=== PATIENT | female | born 1950 | race Caucasian/White ===

== ENCOUNTER 2019-02-03 02:08 | Observation (INO) | payer MEDICARE, MEDICAID ==
[2019-02-03] VITALS (7 sets, daily range): BP systolic 131–189; BP diastolic 70–89; BMI 30.6
--- NOTE | ~2019-02-03 | HEMODYNAMI ---
PATIENT:ALBERT MADRID JR MEDICAL RECORD: [id number] : 50 LOCATION:[address] ADMISSION DATE: 02/03/19 Generatedon:02/03/201911:18 Patient name: ALBERT MADRID Patient #: [id number] SSN : : 1950 Date of study: 02/03/2019 Page: Of Hemodynamic Procedure Report Patient Data Patient Demographics Procedure consent was obtained First Name: ALBERT Gender: Female Last Name: JUILUS Suffix: [facility] Initial: Dominique : 1950 Patient #: [id number] Age: 68 year(s) Race: Unknown Additional ID: [id number] Contact details Address: [place] [place] [address] State: [place] City: [place] Zip code: [address] Admission Admission Data Admission Date: 02/03/2019 Admission Time: 2:56 Admit Source: Other Room #: D.2128 Procedure Procedure Types Cath Procedure Diagnostic Procedure LHC LHC w/Coronaries w/Grafts PCI Procedure AMI/SVG/TITLE CLOSER PTCA or Stent SVG-BMS/ELOISE Initial Procedure Description Procedure Date Procedure Date: 02/03/2019 Procedure Start Time: 10:44 Procedure End Time: 11:13 Procedure Staff Name Function Alok Go MD Performing Physician Darryl Stinson RT Monitor Tanisha Maza RN Nurse Jono Christianson RT Scrub Procedure Data Cath Procedure Fluoroscopy Diagnostic fluoroscopy Total fluoroscopy Time: 9.5 time: 9.5 min min Diagnostic fluoroscopy Total fluoroscopy dose: dose: 1198 mGy 1198 mGy Contrast Material Contrast Material Type Amount (ml) Isovue 370 143 Entry Location Entry Primary Successful Side Size Upsize Upsize Entry Closure Succes sful Closure Location (Fr) 1 (Fr) 2 (Fr) Remarks Device Remarks Femoral Right 5 Fr 6 Fr Exoseal artery Short Diagnostic catheters Device Type Used For End Catheter Placement MULTIPACK JL 4.0 5Fr Left Coronary catheter Angiography DIAGNOSTIC AR MOD 5Fr Right Coronary Catheter ([id number]) Angiography DIAGNOSTIC IM 5Fr SVG Angiography catheter ([id number]) MULTIPACK Pigtail 5 Fr LV Angiography catheter Procedure Complications No complications Procedure Medications Medication Administration Route Dosage 0.9% NaCl I.V. 100 ml/hr Oxygen etCO2 Nasal cannula 2 l/min Lidocaine 2% added to field 20 Heparin Flush Bag added to field 2 bags (1000units/500ml NS) Versed I.V. 2 mg Fentanyl I.V. 50 mcg Fentanyl I.V. 50 mcg Heparin Bolus I.V. 9000 units Plavix P.O. 600 mg Hemodynamics Rest Heart Rate: 85 (bpm) Pressure Samples Time Site Value (mmHg) Purpose Heart Use Rate(bpm) 10:56 LV 137/4,15 EDP 79 10:56 AO 135/63(92) Pullback 79 10:56 LV 142/9,20 Pullback 79 Gradients Valve Time Site 1 Site 2 Mean SEP/DFP Peak To Heart Use (mmHg) (sec/min) Peak Rate (mmHg) (bpm) Aortic 10:56 LV AO 13 7 7 79 142/9,20 135/63(92) Calculations Valve P-P Mean Valve Index Valve Source Name Gradient Area Flow (cm2) Aortic 7 13 7 13 Snapshots Pre Cath Intra NCS Post Cath Vital Signs Time Heart Resp SPO2 etCO2 NIBP (mmHg) Rhythm Pain Sedation Rate (ipm) (%) (mmHg) Status Level (bpm) 10:30:46 82 17 98 39.6 172/103(150) NSR 0 (11) 10(A) , No pain 10:35:18 85 16 96 34.8 159/88(123) NSR 0 (11) 10(A) , No pain 10:39:45 81 15 99 44.5 154/90(119) NSR 0 (11) 10(A) , No pain 10:44:05 83 13 99 25.9 143/87(116) NSR 0 (11) 9(A) , No pain 10:48:19 84 14 99 44.5 141/92(125) NSR 0 (11) 9(A) , No pain 10:52:41 78 13 98 44.5 151/86(114) NSR 0 (11) 9(A) , No pain 10:54:15 80 12 98 48.9 144/84(129) NSR 0 (11) 9(A) , No pain 10:58:37 79 12 98 48.9 155/82(126) NSR 0 (11) 9(A) , No pain 11:03:06 75 12 98 48.9 156/81(132) NSR 0 (11) 9(A) , No pain 11:07:34 81 13 98 48.2 148/81(116) NSR 0 (11) 9(A) , No pain 11:11:56 79 13 98 48.2 160/89(120) NSR 0 (11) 10(A) , No pain Medications Time Medication Route Dose Verified Delivered Reason Notes Effectiveness by by 10:35:05 Fentanyl I.V. 50 Alok Tanisha for sedation mcg Donavan Maza RN 10:35:51 Versed I.V. 2 mg Alok Tanisha for sedation Donavan Maza RN 10:40:28 Fentanyl I.V. 50 Alok Tanisha for sedation mcg Donavan Maza RN 10:41:39 0.9% NaCl I.V. 100 Alok Tanisha used for ml/hr Donavan Maza architectural modeler 10:41:46 Oxygen etCO2 2 Alok Tanisha used for Nasal l/min Donavan Maza procedure cannula RN 10:41:52 Lidocaine 2% added 20ml Alok Alok for local to vial Donavan Go MD anesthetic field 10:42:17 Heparin Flush added 2 Alok Alok used for Bag to bags Donavan Go MD procedure (1000units/500ml field NS) 11:02:21 Heparin Bolus I.V. 9000 Alok Tanisha for verif ied units Donavan Maza anticoagulation with Dr. TATI Go 11:13:07 Plavix P.O. 600 Alok Tanisha for mg Donavan Maza antiplatelet RN therapy Procedure Log Time Note 10:28:36 Admit Source: Other 10:29:03 Diagnostic Cath status Elective 10:29:06 Jono Christianson RT(R) sent for patient. Start room use. 10:29:08 Time tracking: Regular hours (M-F 7:00 - 5:00) 10:29:12 Plan of Care:Hemodynamics will remain stable., Cardiac rhythm will remain stable., Comfort level will be maintained., Respiratory function will remain adequate., Patient/ family verbilizes understanding of procedure., Procedure tolerated without complication., Recovers from procedure without complications.. 10:29:18 Patient received from PCU to CCL 1 Alert and oriented. Tansferred to table in Supine position. 10:29:19 Warm blankets applied, and mar hugger turned on for patient comfort. 10:29:20 Correct patient and procedure confirmed by team. 10:29:21 Signed procedure consent form obtained from patient. 10:29:22 Baseline sample Acquired. 10:29:22 ECG and BP/O2 sat monitors applied to patient. 10:29:22 Vital chart was started 10::25 Rhythm: sinus rhythm 10::26 Full Disclosure recording started 10:29:28 H&P Date Dictated: 02/03/2019 Within 30 days and on chart.. 10:29:29 Pre-procedure instructions explained to patient. 10:29:29 Pre-op teaching completed and patient verbalized understanding. 10:29:31 Family in waiting room. 10:29:32 Patient NPO since Midnight. 10:29:39 Is the patient allergic to Iodine/contrast media? No. 10:33:13 Is patient on blood thinner?Yes 10:33:16 Patient diabetic? Yes. 10:33:18 If diabetic: On Metformin? Yes 10:33:44 pt states unkown for last dose of metformin or plavix 10:33:45 ----Pre-sedation anethsthesia assessment.---- 10:33:48 Previous problem with sedation/anesthesia? No ? 10:33:49 Snore? Yes 10:33:50 Sleep apnea? No 10:33:52 Deviated septum? No 10:33:53 Opens mouth fully? Yes 10:33:54 Sticks out tongue? Yes 10:33:58 Airway obstruction? Yes COPD 10:34:01 Dentures? No ? 10:34:04 Pre procedure: right dorsailis pedis pulse 1+ Palpable, but thready & weak; easily obliterated 10:34:07 Patient pain scale 0/10 ?. 10:34:23 IV patent on arrival in right forearm with 0.9% NaCl at KVO. 10:34:30 Lab results completed and on chart. 10:34:34 Right groin area was prepped with chlora-prep and draped in sterile fashion 10:34:35 Alarms reviewed by Wolf Michel 10:34:35 Sharps counted by scrub and verified by R.N. 10:34:36 Physician arrived 10:34:37 --------ALL STOP TIME OUT------ 10:34:37 Final Timeout: patient, procedure, and site verified with staff and physician. All members of the team are in agreement. 10:34:39 Right groin site verified by team. 10:34:44 Maximum allowable Isovue 370 dose 300ml. Physician notified. (300ml for normal creatinines. For patients with creatinine of 1.7 or higher multiply weight(kg) x 5 divided by creatinine.) 10:34:49 Fire Safety Assessment: A--An alcohol-based skin anteseptic being used preoperatively., C--Open oxygen or nitrous oxide is being used., D--An ESU, laser, or fiber-optic light is being used. 10:34:53 Physical assessment completed. ASA score P 2 - A patient with mild systemic disease as per Alok Go MD. 10:34:56 Sedation plan: IV Moderate Sedation Medication:Versed, Fentanyl 10:35:05 Fentanyl 50 mcg I.V. was administered by Tanisha Maza RN; for sedation; 10:35:44 Use device set Femoral Dx 10:35:45 ACIST Syringe (15307) opened to sterile field. 10:35:45 Bag Decanter (2002S) opened to sterile field. 10:35:46 Medline Cath Pack ([id number]) opened to sterile field. 10:35:47 DIAGNOSTIC WIRE .035 260cm J wire (708131) opened to sterile field. 10:35:48 ACIST Hand Control (44517) opened to sterile field. 10:35:49 ACIST Manifold (40082) opened to sterile field. 10:35:49 DIAGNOSTIC Multipack 5Fr catheter set (RC7549) opened to sterile field. 10:35:50 Tegaderm 4 x 4 (1626W) opened to sterile field. 10:35:51 Versed 2 mg I.V. was administered by Tanisha Maza RN; for sedation; 10:35:51 SHEATH 5FR [place] (KGB976) opened to sterile field. 10:38:42 Zero performed for pressure channel P1 10:40:28 Fentanyl 50 mcg I.V. was administered by Tanisha Maza RN; for sedation; 10:40:37 Procedure started. 10:41:39 0.9% NaCl 100 ml/hr I.V. was administered by Tanisha Maza RN; used for procedure; 10:41:46 Oxygen 2 l/min etCO2 Nasal cannula was administered by Tanisha Maza RN; used for procedure; 10:41:52 Lidocaine 2% 20ml vial added to field was administered by Alok Go MD; for local anesthetic; 10:42:17 Heparin Flush Bag (1000units/500ml NS) 2 bags added to field was administered by Alok Go MD; used for procedure; 10:44:23 Local anesthetic to right femoral artery with Lidocaine 2% by Alok Go MD.INITIAL ACCESS ONLY 10:44:30 A 5 Fr sheath was inserted into the Right Femoral artery 10:47:13 A MULTIPACK JL 4.0 5Fr catheter was advanced over the wire and used for Left Coronary Angiography. 10:47:17 LCA angiography performed. 10:48:25 Catheter removed. 10:49:04 A DIAGNOSTIC AR MOD 5Fr Catheter (062028G) was advanced over the wire and used for Right Coronary Angiography. 10:49:10 RCA angiography performed. 10:50:00 SVG to OM angiography performed. 10:50:52 SVG to Diag angiography performed. 10:50:59 Catheter exchanged over wire. 10:51:59 A DIAGNOSTIC IM 5Fr catheter (684785J) was advanced over the wire and used for SVG Angiography. 10:52:54 JAMES to LAD angiography performed. 10:54:02 Catheter exchanged over wire. 10:54:08 A MULTIPACK Pigtail 5 Fr catheter was advanced over the wire and used for LV Angiography. 10:55:06 LV angiography performed. 10:55:07 LV gram done using PERALTA 10:55:11 LV hemodynamics recorded. 10:56:29 EF : 60 % 10:57:14 Catheter exchanged over wire. 10:57:23 SHEATH 6FR [place] (EAT873) opened to sterile field. 10:57:33 INFLATOR Merit BasixCompak (OR9115) opened to sterile field. 10:57:33 BMW 300cm Pateros 2 J wire (6023206R) opened to sterile field. 10:57:45 TUBING High Pressure Extension Tubing (Donavan) (SO7946O) opened to sterile field. 10:58:57 GUIDE 6FR AR 1.0 catheter (RO8SO96) opened to sterile field. 10:59:48 Sheath upsized to a 6 Fr Short. 10:59:56 6 Fr AR 1 guide catheter was inserted over the wire 11:00:23 Procedure type changed to Cath procedure, Diagnostic procedure, LHC, LHC w/Coronaries w/Grafts, PCI procedure, AMI/SVG/TITLE CLOSER PTCA or Stent, SVG-BMS/ELOISE Initial 11:02:21 Heparin Bolus 9000 units I.V. was administered by Tanisha Maza RN; for anticoagulation; verified with Dr. Go 11:02:31 BMW wire advanced. 11:04:47 Inflate balloon Inflation number: 1 A EMERGE OTW 2.0 x 12 balloon ([id number]) was prepped and advanced across the Aorta Left -> Dist CX, then inflated to 10 ITZ for 0:24 (min:sec). 11:05:58 Balloon removed over the wire. 11:10:08 Place stent Inflation Number: 2 A KAYLEE OTW 2.25 x 12 stent ([id number]) was prepped and advanced across the Aorta Left -> Dist CX. The stent was deployed at 11 ITZ for 0:27 (min:sec). 11:11:08 Stent catheter was removed intact over wire. 11:11:08 Wire removed. 11:11:11 Guide catheter removed. 11:11:18 Sheath removed intact; hemostasis achieved with Exoseal to the Right Femoral artery. 11:11:24 Contrast amount:Isovue 370 143ml. 11:11:32 EXOSEAL 6Fr (EX600) opened to sterile field. 11:11:36 Procedure ended.(Physican Out) 11:11:49 Fluoroscopy time 09.50 minutes. 11:11:55 Fluoroscopy dose: 1198 mGy 11:11:55 Flurop Dose total: 1198 11:11:57 Sharps counted by scrub and verified by R.N. 11:11:59 Insertion/operative site no bleeding no hematoma. 11:12:02 Post-op/insertion site Right Femoral artery dressed using a 4 x 4 and Tegaderm. 11:12:05 Post right femoral artery:stable 11:12:06 Post Procedure Pulses reassessed and unchanged 11:12:08 Post procedure: right dorsailis pedis pulse 2+ Normal; easily identifiable; not easily obliterated. 11:12:11 Post procedure rhythm: sinus rhythm 11:12:12 Post procedure instruction explained to patient.Patient verbalizes understanding. 11:12:13 Procedure and supply charges have been captured, reviewed, submitted and are correct. 11:12:36 Procedure Complication : No complications 11:12:38 Vital chart was stopped 11:12:39 See physician's report for complete and final results. 11:12:44 Report given to PCU. 11:12:59 Patient transfered to PCU with Bed. 11:13:01 Procedure ended. 11:13:01 Full Disclosure recording stopped 11:13:05 End room use (Document Last) 11:13:07 Plavix 600 mg P.O. was administered by Tanisha Maza RN; for antiplatelet therapy; 11:14:00 ACC-PCI Only Patient was given prescriptions, or instructed by Alok Go MD to start/continue the following medications upon discharge: Plavix Intervention Summary Intervention Notes Time ActionType Lesion and Equipment Action# Pressure Duration Attributes Used 11:04:47 Inflate Aorta Left EMERGE OTW 1 10 00:24 balloon -> Dist CX 2.0 x 12 balloon ([id number]) 11:10:08 Place stent Aorta Left KAYLEE OTW 2.25 2 11 00:27 -> Dist CX x 12 stent ([id number]) Device Usage Item Name Manufacture Quantity Catalog Number Hospital Part Current Min imal Lot# / Charge Number Stock Stock Serial# Code ACIST Syringe Acist 1 77042 996403 726811 864152 20 (33948) Medical Systems Inc Bag Decanter Microtek 1 768752 33622 385537 5 () Medical Inc. Medline Cath Medline 1 [id number] 696291 49734 830250 5 Pack ([id number]) DIAGNOSTIC St Manuel 1 311774 375783 229333 598304 30 WIRE .035 260cm J wire (271479) ACIST Hand Acist 1 57720 389788 992425 997576 5 Control Medical (01644) Systems Inc ACIST Acist 1 61622 815235 820882 631338 5 Manifold Medical (36852) Systems Inc DIAGNOSTIC Cardinal 1 KL8535 501889 67511 747260 30 Multipack 5Fr Health catheter set (HK9187) Tegaderm 4 x 3M 1 1626W 589133 178608 431591 5 4 (1626W) SHEATH 5FR Terumo 1 HQY094 084086 325806 476664 5 [place] (PIN306) MULTIPACK JL Cardinal 1 440068 5 4.0 5Fr Health catheter DIAGNOSTIC AR Cardinal 1 183444W 838570 239205 920339 15 MOD 5Fr Health Catheter (519446S) DIAGNOSTIC IM Cardinal 1 035912T 774063 269809 236091 5 5Fr catheter Health (611800H) MULTIPACK Cardinal 1 542255 5 Pigtail 5 Fr Health catheter SHEATH 6FR Terumo 1 DLG355 650668 195446 154923 40 [place] (JGC496) INFLATOR Merit 1 EX9871 572376 713338 275274 15 [place] Medical BasixCompak (KB6203) BMW 300cm Fields 1 3186098V 351660 821709 787454 5 Pateros 2 J Vascular wire (1150743M) TUBING High Merit 1 NP9523T 148286 00510 241869 10 Pressure Medical Extension Tubing (Go) (CR9941M) GUIDE 6FR AR Medtronic 1 BQ2WB46 598860 26446 512364 1 1.0 catheter (AD5CH75) EMERGE OTW [place] 1 [id number] 172010 111765 884507 5 [id number] 2.0 x 12 Scientific balloon ([id number]) KAYLEE OTW 2.25 Medtronic 1 [id number] 144261 59482 329428 5 [id number] x 12 stent ([id number]) EXOSEAL 6Fr Cardinal 1 EX600 258210 316505 168379 10 (EX600) Health Signature Audit Freedom Stage Time Signature Unsigned Intra-Procedure 02/03/2019 Darryl BURLESON([place]) 11:18:34 AM Signatures Monitor : Darryl Stinson RT Signature : Date : Time : [facility] [address] [place] [address]
[2019-02-03] MEDS ORDERED: ALBUTEROL0.63 MG/3 INH (02:22)
[2019-02-03] MEDS ORDERED: BAYER ASPIRIN325 MG PO (02:22)
[2019-02-03] MEDS ORDERED: ARTIFICIAL TEAR15 ML EACH EYE (02:22)
[2019-02-03] MEDS ORDERED: BUSPIRONE HCL30 MG PO (02:23)
[2019-02-03] MEDS ORDERED: PROSCAR5 MG PO (02:23)
[2019-02-03] MEDS ORDERED: LIPITOR40 MG PO (02:23)
[2019-02-03] MEDS ORDERED: PROZAC20 MG PO (02:23)
[2019-02-03] MEDS ORDERED: FUROSEMIDE20 MG PO (02:24)
[2019-02-03] MEDS ORDERED: ISOSORBIDE MONO60 M1 PO (02:24)
[2019-02-03] MEDS ORDERED: TOPROL XL100 MG PO ×2 (02:25→16:32)
[2019-02-03] MEDS ORDERED: LANTUS INSULIN10 ML SC (02:25)
[2019-02-03] MEDS ORDERED: LYRICA75 MG PO (02:25)
[2019-02-03] MEDS ORDERED: LISINOPRIL5 MG (02:25)
[2019-02-03] MEDS ORDERED: TRULICITY0.75 MG/0. SC (02:26)
[2019-02-03] MEDS ORDERED: PLAVIX75 MG PO ×2 (02:26→16:53)
[2019-02-03] MEDS ORDERED: NOVOLOG100 UNIT/1 SC (02:26)
[2019-02-03] MEDS ORDERED: FLOMAX0.4 MG PO (02:26)
[2019-02-03] MEDS ORDERED: OMEPRAZOLE40 MG PO (02:26)
[2019-02-03] MEDS ORDERED: NITROQUICK0.4 MG SL (02:26)
[2019-02-03] MEDS ORDERED: TRAZODONE HCL300 MG PO (02:27)
[2019-02-03] MEDS ORDERED: ALBUTEROL SULF8.5 GM (02:27)
[2019-02-03] MEDS ORDERED: METFORMIN HCL500 M1 PO (02:27)
[2019-02-03] MEDS ORDERED: GLUCOTROL 5 MG T5 MG PO (02:27)
[2019-02-03 03:00] LABS: CKMB 3.5 U/L (0.0-3.6); CREATINE KINASE 71 UL (21-215); MAGNESIUM - SERUM 1.6 mg/dL (1.8-2.4); TROPONIN-I 0.026 ng/mL (0.000-0.060)
[2019-02-03 07:01] LABS: BASOPHILS 0.5 % (0-2); EOSINOPHILS 6.6 % (0-7); HEMATOCRIT 41.8 % (36.0-48.0); HEMOGLOBIN 14.6 g/dL (12-16); IMMATURE GRANULOCYTES 0.3 % (0-5); LYMPHOCYTES 35.3 % (15-50); MCH 31.9 pg (26.0-34.0); MCHC 34.9 g/dL (31.0-37.0); MCV 91.5 fL (80.0-100.0); MEAN PLATELET VOLUME 10.6 fL (7.4-10.4); NEUTROPHILS 47.3 % (40-80); PLATELET COUNT 350 10x3/uL (130-400); RBC 4.57 10x6/uL (4.00-5.40); RDW 12.7 % (11.5-14.5); WBC 10.2 10x3/uL (4.8-10.8)
[2019-02-03 07:30] LABS: CALC OSMOLALITY 294 mosm/kg (275-300); CARBON DIOXIDE 32.1 mmol/L (21.0-32.0); CHLORIDE - SERUM 100 mmol/L (98-107); CKMB 3.2 U/L (0.0-3.6); CREATINE KINASE 61 UL (21-215); CREATININE - SERUM 1.7 mg/dL (0.6-1.3); GLUCOSE 360 mg/dL (74-106); POTASSIUM - SERUM 3.2 mmol/L (3.5-5.1); SODIUM 138 mmol/L (136-145); TROPONIN-I 0.034 ng/mL (0.000-0.060); UREA NITROGEN 23 mg/dL (7-18); eGFR NON AFRICAN AMERICAN 32 mL/min (90-120)
[2019-02-03] MEDS ORDERED: TRAZADONE PO (15:23)
[2019-02-03] MEDS ORDERED: FERROUS SULFAT325 MG PO (15:50)
[2019-02-03] MEDS ORDERED: ASPIRIN81 MG PO (15:50)
[2019-02-03] MEDS ORDERED: K-DUR20 MEQ PO (15:52)
[2019-02-03] MEDS ORDERED: ZOCOR20 MG PO (15:52)
[2019-02-03] MEDS ORDERED: ALDACTONE25 MG PO (15:53)
[2019-02-03] MEDS ORDERED: CATAPRES0.1 MG PO (15:53)
[2019-02-03] MEDS ORDERED: HYDROCODON-ACE1 EA10 PO (15:57)
[2019-02-03] MEDS ORDERED: LISINOPRIL20 MG PO (16:04)
[2019-02-03] MEDS ORDERED: VIAGRA25 MG PO (16:05)
--- NOTE | 2019-02-04 09:19 | MORECARE ---
CASE MANAGEMENT DISCHARGE SUMMARY PATIENT: ALBERT MADRID JR UNIT: [id number] ADM DATE: 02/03/19 AGE: 68 : 50 SEX: F ROOM/BED: D.5007 AUTHOR: SKYE MORRIS PHYSICIAN: REFERRING PHYSICIAN: ETELVINA AUSTIN DO DATE OF SERVICE: 02/04/19 Discharge Plan Patient Name: ALBERT MADRID [facility] [facility] 1950 Planned Disposition: Home Anticipated Discharge Date: 02/03/19 Discharge Date: 02/03/2019 Expected LOS: 1 Initial Reviewer: [email or web address] Initial Review Date: 02/04/2019 Generated: 02/04/19 10:19 am Patient Name: ALBERT MADRID Page 17225 at 0919 All edits/amendments must be made on the electronic document DICTATION DATE: 02/04/19918 SALON DESIGNER: ISHMAEL 02/04/19918 RPT#: [id number] DC DATE:02/03/19 STATUS: DIS IN [facility] [address] [place] [address] END OF REPORT
== END 2019-02-03 22:14 | disposition home or self-care (01) ==
LOC: D.ER 02:08 → D.M2 02:56
PROVIDERS: Emergency Medicine; Internal Medicine Cardiovascular Disease; ADMIT Family Medicine
DX: I25.110 Atherosclerotic heart disease of native coronary artery with unstable angina pectoris (principal); Z86.73 Personal history of transient ischemic attack (TIA), and cerebral infarction without residual deficits; J44.9 Chronic obstructive pulmonary disease, unspecified; I10 Essential (primary) hypertension; E78.5 Hyperlipidemia, unspecified; M81.0 Age-related osteoporosis without current pathological fracture; E11.65 Type 2 diabetes mellitus with hyperglycemia
CPT/HCPCS: 93459; C9604

== ENCOUNTER → 2020-01-13 19:15 | Outpatient (CLI) | payer MEDICARE, MEDICAID ==
[2019-02-03 06:03] VITALS: BMI 30.6
[~2020-01-13 19:15] MED LIST: ALBUTEROL SULF8.5 GM; ALBUTEROL0.63 MG/3 INH; ALDACTONE25 MG PO; ARTIFICIAL TEAR15 ML EACH EYE; ASPIRIN81 MG PO; BAYER ASPIRIN325 MG PO; BUSPIRONE HCL30 MG PO; CATAPRES0.1 MG PO; FERROUS SULFAT325 MG PO; FLOMAX0.4 MG PO; FUROSEMIDE20 MG PO; GLUCOTROL 5 MG T5 MG PO; HYDROCODON-ACE1 EA10 PO; ISOSORBIDE MONO60 M1 PO; K-DUR20 MEQ PO; LANTUS INSULIN10 ML SC; LIPITOR40 MG PO; LISINOPRIL20 MG PO; LISINOPRIL5 MG; LYRICA75 MG PO; METFORMIN HCL500 M1 PO; NITROQUICK0.4 MG SL; NOVOLOG100 UNIT/1 SC; OMEPRAZOLE40 MG PO; PLAVIX75 MG PO; PROSCAR5 MG PO; PROZAC20 MG PO; TOPROL XL100 MG PO; TRAZADONE PO; TRAZODONE HCL300 MG PO; TRULICITY0.75 MG/0. SC; VIAGRA25 MG PO; ZOCOR20 MG PO
[2020-01-13 19:56] LABS: BILIRUBIN NEGATIVE (NEGATIVE); GLUCOSE 50 mg/dL (NEGATIVE); KETONE NEGATIVE (NEGATIVE); NITRITE NEGATIVE (NEGATIVE); SPECIFIC GRAVITY 1.025 (1.005-1.020); UROBILINOGEN NORMAL (NORMAL)
== END | disposition home or self-care (01) ==
LOC: D.LABREF 19:15
PROVIDERS: ATTEND Family Medicine
DX: N39.0 Urinary tract infection, site not specified (principal)

== ENCOUNTER 2020-01-21 18:12 | Inpatient (IN) | payer MEDICARE, MEDICAID ==
[~2020-01-21] VITALS: Ht 172.7 cm; Wt 98.4 kg
--- NOTE | 2020-01-21 18:30 | NUR ---
FSBS [address]
--- NOTE | 2020-01-21 18:36 | NUR ---
PT TO RADIOLOGY AT THIS TIME
[2020-01-21 19:00] VITALS: BP 181/82
--- NOTE | 2020-01-21 19:04 | NUR ---
PT REPORT GIVEN TO VIVI Bloom RN AT THIS TIME.
[2020-01-21 19:14] LABS: BASOPHILS 0.2 % (0-2); EOSINOPHILS 4.9 % (0-7); HEMATOCRIT 41.9 % (42.0-54.0); HEMOGLOBIN 13.8 g/dL (13.5-17.5); IMMATURE GRANULOCYTES 0.3 % (0-5); MCH 32.7 pg (26.0-34.0); MCHC 32.9 g/dL (31.0-37.0); MCV 99.3 fL (80.0-100.0); MEAN PLATELET VOLUME 9.9 fL (7.4-10.4); MONOCYTES 11.3 % (2-11); NEUTROPHILS 60.3 % (40-80); PLATELET COUNT 292 10x3/uL (130-400); RBC 4.22 10x6/uL (4.20-6.10); RDW 13.2 % (11.5-14.5)
[2020-01-21 19:24] LABS: APTT 27.4 SECONDS (22.8-39.4); INR 1.05 (0.85-1.17); PROTIME 13.6 SECONDS (11.6-15.0)
[2020-01-21 19:25] LABS: CALC OSMOLALITY 291 mosm/kg (275-300); CALCIUM 9.9 mg/dL (8.5-10.1); CARBON DIOXIDE 32.6 mmol/L (21.0-32.0); CHLORIDE - SERUM 103 mmol/L (98-107); CREATININE - SERUM 2.1 mg/dL (0.6-1.3); GLUCOSE 145 mg/dL (74-106); POTASSIUM - SERUM 4.2 mmol/L (3.5-5.1); SODIUM 140 mmol/L (136-145); UREA NITROGEN 40 mg/dL (7-18); eGFR NON AFRICAN AMERICAN 25 mL/min (90-120)
[2020-01-21 19:48] LABS: ALBUMIN 3.3 g/dL (3.4-5.0); ALKALINE PHOSPHATASE 61 U/L (30-120); ALT (SGPT) 42 U/L (10-68); BILIRUBIN - TOTAL 0.29 mg/dL (0.2-1.3); CKMB 5.3 U/L (0.0-3.6); CREATINE KINASE 107 UL (21-215); MAGNESIUM - SERUM 1.8 mg/dL (1.8-2.4); PROTEIN - SERUM 7.1 g/dL (6.4-8.2); THYROID STIMULATING HORMONE 3.15 uIU/mL (0.36-3.74)
[2020-01-21 19:50] LABS: TROPONIN-I 0.084 ng/mL (0.000-0.060)
[2020-01-21 20:15] VITALS: BP 145/81
[2020-01-21 20:19] LABS: BILIRUBIN NEGATIVE (NEGATIVE); GLUCOSE NEGATIVE (NEGATIVE); KETONE NEGATIVE (NEGATIVE); NITRITE NEGATIVE (NEGATIVE); UROBILINOGEN NORMAL (NORMAL)
[2020-01-21 20:20] LABS: AMORPHOUS SEDIMENT >1+ /lpf (NONE SEEN); BACTERIA FEW /hpf (NEGATIVE); RED CELLS - URINE RARE /hpf (0-5); WHITE CELLS - URINE RARE /hpf (NEGATIVE)
[2020-01-21 20:22] LABS: UDS - AMPHET NEGATIVE QUAL (NEGATIVE); UDS - BARB NEGATIVE QUAL (NEGATIVE); UDS - BENZO NEGATIVE QUAL (NEGATIVE); UDS - COCAINE NEGATIVE QUAL (NEGATIVE); UDS - OPIATE NEGATIVE QUAL (NEGATIVE); UDS - PCP NEGATIVE QUAL (NEGATIVE); UDS - THC NEGATIVE QUAL (NEGATIVE)
--- NOTE | 2020-01-21 22:15 | NUR ---
REC'D PATIENT FROM ER. PATIENT RESTING IN BED WITH NO S/S OF DISTRESS AND DENIES NEEDS AT THIS TIME. PATIENT CONFUSED TO PLACE, TIME, AND SITUATION. BED IN LOWEST POSITION AND CALL LIGHT WITHIN REACH. ENCOURAGED THE PATIENT TO CALL IF SHE HAS NEEDS. WILL CONTINUE TO MONITOR.
[2020-01-21 22:39] LABS: CKMB 5.6 U/L (0.0-3.6); CREATINE KINASE 115 UL (21-232)
[2020-01-21 22:41] LABS: TROPONIN-I 0.081 ng/mL (0.000-0.060)
[2020-01-22] VITALS (7 sets, daily range): BP systolic 109–178; BP diastolic 43–79; BMI 33.0
[2020-01-22] MEDS ORDERED: BUPROPION HCL75 MG PO (02:14)
[2020-01-22] MEDS ORDERED: LIPITOR80 MG PO (02:14)
[2020-01-22] MEDS ORDERED: PROPECIA1 MG PO (02:15)
[2020-01-22] MEDS ORDERED: PROZAC40 MG PO (02:15)
[2020-01-22] MEDS ORDERED: ISOSORBIDE MONO60 M1 PO (02:16)
[2020-01-22] MEDS ORDERED: MULTI-DAY VITAM1 TAB PO (02:16)
[2020-01-22] MEDS ORDERED: PRESERVISION AREDS PO (02:17)
[2020-01-22] MEDS ORDERED: TRAZODONE HCL150 MG PO (02:18)
[2020-01-22] MEDS ORDERED: BACLOFEN10 MG PO (02:19)
[2020-01-22] MEDS ORDERED: SENNA LAXATIVE8.6 MG PO (02:19)
[2020-01-22] MEDS ORDERED: NOVOLOG100 UNIT/1 SC (02:24)
[2020-01-22] MEDS ORDERED: DULCOLAX10 MG/SUPP RC (02:25)
[2020-01-22] MEDS ORDERED: MECLIZINE HCL12.5 MG PO (02:26)
[2020-01-22] MEDS ORDERED: GUAIFENESI100 MG/5 M PO (02:27)
[2020-01-22] MEDS ORDERED: ULTRAM50 MG PO (02:27)
[2020-01-22] MEDS ORDERED: ZOFRAN4 MG PO (02:28)
[2020-01-22 05:48] LABS: APTT 29.3 SECONDS (22.8-39.4); INR 1.07 (0.85-1.17); PROTIME 13.9 SECONDS (11.6-15.0)
[2020-01-22 06:10] LABS: ALBUMIN 3.1 g/dL (3.4-5.0); ALKALINE PHOSPHATASE 50 U/L (30-120); ALT (SGPT) 38 U/L (10-68); BILIRUBIN - TOTAL 0.44 mg/dL (0.2-1.3); CALCIUM 9.3 mg/dL (8.5-10.1); CARBON DIOXIDE 29.9 mmol/L (21.0-32.0); CHLORIDE - SERUM 107 mmol/L (98-107); CKMB 4.5 U/L (0.0-3.6); CREATINE KINASE 99 UL (21-232); CREATININE - SERUM 1.6 mg/dL (0.6-1.3); PROTEIN - SERUM 6.6 g/dL (6.4-8.2); SODIUM 142 mmol/L (136-145); UREA NITROGEN 34 mg/dL (7-18); eGFR NON AFRICAN AMERICAN 46 mL/min (90-120)
[2020-01-22 06:12] LABS: CALC OSMOLALITY 288 mosm/kg (275-300); GLUCOSE 57 mg/dL (74-106); POTASSIUM - SERUM 3.5 mmol/L (3.5-5.1); TROPONIN-I 0.082 ng/mL (0.000-0.060)
--- NOTE | 2020-01-22 07:34 | NUR ---
ALERT AND ORIENTED TO SELF AND STATED UNSURE WHAT HAPPENED TO HIMSELF OR WHERE HE IS. PATIENT REORIENTED AT THIS TIME AND ENCOU RAGED TO USE CALL LIGHT FOR ASSSIT. FALL PREVENTIONS IN PLACE CONTRATURE NOTED TO RIGHT HAND. LUNGS CTA WITH ABDOMEN SOFT WITH BOWEL SOUNDSS NOTED. WEARS BRIEFS DUE TO INCONT. EPISODES. NO PERIPHERAL EDEMA NOTED.
[2020-01-22 10:32] LABS: CKMB 5.2 U/L (0.0-3.6); CREATINE KINASE 114 UL (21-232); TROPONIN-I 0.082 ng/mL (0.000-0.060)
[2020-01-22 10:32] LABS: CHOL - HDL RATIO 1.8 ratio (2.3-4.9); LDL-HDL RATIO 0.5 ratio (1.5-3.5)
--- NOTE | 2020-01-22 11:00 | NUR ---
PATIENT MORE ALERT AND ORIENTED TO SELF AND SURROUNDINGS. BATH GIVEN WITH ASSSIT. AMBULATES TO BATHROOM WITH ASSSIT X1. PERICARE DONE WITH EACH INCONT. EPISODE. FALLPRECATIONS IN PLACE AND ENCOURAGED TO USE CALL LIGHT FOR ASSSIT.
--- NOTE | 2020-01-22 19:00 | NUR ---
BEDSIDE REPORT RECEIVED AND CARE OF PT ASSUMED. PT SITTING UP ON SIDE OF BED WATCHING TV. IV TO LEFT AC PATENT WITH NS INFUSING AT 100 ML/HR. BED ALARM IN USE. WILL MONITOR FOR NEEDS.
--- NOTE | 2020-01-22 20:10 | NUR ---
HS MEDICATIONS GIVEN. FSBS 128 THIS CHECK REQUIRING NO COVERAGE PER SLIDING SCALE. PT SWALLOWED MEDS WITH WATER WITHOUT DIFFICULTY.
[2020-01-23 04:00] VITALS: BP 134/72
--- NOTE | 2020-01-23 04:41 | NUR ---
fsbs 67 this check. gave 8 oz orange juice. will continue to monitor danya.
[2020-01-23 05:23] LABS: BASOPHILS 0.2 % (0-2); EOSINOPHILS 0.6 % (0-7); HEMATOCRIT 42.8 % (42.0-54.0); HEMOGLOBIN 13.9 g/dL (13.5-17.5); IMMATURE GRANULOCYTES 0.3 % (0-5); LYMPHOCYTES 14.4 % (15-50); MCH 32.4 pg (26.0-34.0); MCHC 32.5 g/dL (31.0-37.0); MCV 99.8 fL (80.0-100.0); MEAN PLATELET VOLUME 10.4 fL (7.4-10.4); NEUTROPHILS 77.5 % (40-80); PLATELET COUNT 302 10x3/uL (130-400); RBC 4.29 10x6/uL (4.20-6.10); RDW 13.6 % (11.5-14.5); WBC 14.3 10x3/uL (4.8-10.8)
[2020-01-23 06:00] LABS: ALBUMIN 3.4 g/dL (3.4-5.0); ANION GAP 9.5 mmol/L (8-16); BILIRUBIN - TOTAL 0.4 mg/dL (0.2-1.3); CALCIUM 8.9 mg/dL (8.5-10.1); CARBON DIOXIDE 29.3 mmol/L (21.0-32.0); CREATININE - SERUM 1.6 mg/dL (0.6-1.3); POTASSIUM - SERUM 3.8 mmol/L (3.5-5.1); PROTEIN - SERUM 7.2 g/dL (6.4-8.2)
--- NOTE | 2020-01-23 06:45 | NUR ---
PATIENT SLIGHTLY CONFUSED THIS AM. NO C/O PAIN. NO S/S OF ACUTE DISTRESS NOTED. UP WITH ASSIST. SEFERINO ALARM ON. IV TO LEFT AC, NS INFUSING @ 100ML/HR. SITE PATENT WITHOUT REDNESS OR SWELLING. DENIES ANY NEEDS AT THIS TIME. CALL LIGHT IN REACH. WILL CONTINUE TO MONITOR.
[2020-01-23 08:53] VITALS: BP 146/82
[2020-01-23 12:13] VITALS: BP 132/91
[2020-01-23 13:42] VITALS: Ht 172.7 cm; Wt 98.4 kg
--- NOTE | 2020-01-23 16:57 | NUR ---
I have reviewed this patient and I concur with the Shift Assessment completed by the Licensed Practical Nurse today this shift.
[2020-01-23 16:58] VITALS: BP 161/74
--- NOTE | 2020-01-23 17:25 | MORECARE ---
CASE MANAGEMENT DISCHARGE SUMMARY PATIENT: ALBERT MADRID JR UNIT: [id number] ADM DATE: 01/21/20 AGE: 69 : 50 SEX: M ROOM/BED: D.2235 AUTHOR: SKYE MORRIS PHYSICIAN: REFERRING PHYSICIAN: KEMI WOODSON MD DATE OF SERVICE: 01/23/20 Discharge Plan Patient Name: ALBERT MADRID [facility] [facility] 1950 Planned Disposition: Nursing Facility [facility] Cert Anticipated Discharge Date: Discharge Date: Expected LOS: Initial Reviewer: [email or web address] Initial Review Date: 01/23/2020 Generated: 01/23/20 6:25 pm External Providers [facility] Next Contact Date: 01/23/2020 Service Request Date: Service Type: Resolution: Reviewer: Comments: External Provider: [facility] Next Contact Date: 01/23/2020 Service Request Date: Service Type: Resolution: Reviewer: Comments: Patient Name: ALBERT MADRID Page 01262 at 1725 All edits/amendments must be made on the electronic document DICTATION DATE: 01/23/201724 SEATING AND MOBILITY TECHNOLOGIST: ISHMAEL 01/23/201724 RPT#: [id number] DC DATE: STATUS: ADM IN [facility] [address] [place] [address] END OF REPORT
--- NOTE | 2020-01-23 17:32 | MORECARE ---
CASE MANAGEMENT DISCHARGE SUMMARY PATIENT: ALBERT MADRID JR UNIT: [id number] ADM DATE: 01/21/20 AGE: 69 : 50 SEX: M ROOM/BED: D.2235 AUTHOR: ARTURO,DOC PHYSICIAN: REFERRING PHYSICIAN: KEMI WOODSON MD DATE OF SERVICE: 01/23/20 Discharge Plan Patient Name: ALBERT MADRDI Facility: [facility]:[place] : 1950 Planned Disposition: Nursing Facility [facility] Cert Anticipated Discharge Date: Discharge Date: Expected LOS: Initial Reviewer: [email or web address] Initial Review Date: 01/23/2020 Generated: 01/23/20 6:31 pm Comments DCP- Discharge Planning Updated by [email or web address]: Vincent Stephen on 01/23/20 4:[address] Patient Name: ALBERT MADRID Admission Status: ER Accout number: [id number] Admission Date: 01-21-2020 : 1950 Admission Diagnosis: Attending: KEMI WOODSON Current LOS: 2 Anticipated DC Date: Planned Disposition: Nursing Facility [facility] Cert Primary Insurance: [employer] CHOICE PPO MCR ADVANT PLANNED EXTERNAL PROVIDER: [facility], RETIREMENT CARE MEDICAID PENDING BED WITH [facility] Discharge Planning Comments: MARY JANE RECEIVED CALL FROM VANESSA CROWLEY, QUALITY CONTROL OPERATOR OF [facility]. [facility] SENT PT TO [facility] AND WAS SEEKING UPDATE ON CARE. PT WAS ADMITTED TO [facility] FROM HOME WITH [facility] RESPITE BED AND HAS BEEN IN A HYDRAULIC DESIGN ENGINEER CARE MEDICAID PENDING BED WITH [facility]. [facility] PLANS TO ACCEPT BACK TO HYDRAULIC DESIGN ENGINEER CARE AT HOSPTIAL DISCHARGE. CM SPOKE TO RN MARY JANE SANDOVAL WHO HAS SPOKEN TO PT AND VERIFIED DISCHARGE PLAN. CM FAXED UPDATES TO [facility] AT [phone] AND [facility] AT [phone]. FOR DISCHARGE BACK TO HYDRAULIC DESIGN ENGINEER CARE AT [facility], FAX DISCHARGE INFORMATION TO [facility] AT [phone]; NURSE REPORT TO BE CALLED TO [facility] AT [phone]. [facility] TO ARRANGE VAN TRANSPORTATION IF PT IS ABLE TO SIT SAFELY FOR DURATION OF TRANSPORT. NOTIFY [facility] AT [phone], FAX DISCHARGE INFORMATION TO [facility] AT [phone]. CM TO CONTINUE TO FOLLOW AND ASSIST NEEDED. Metal Bed Assembler: Vincent Stephen DCPIA - Discharge Planning Initial Assessment Updated by [email or web address]: Vincent Stephen on 01/23/20 5:25 pm * How many steps to enter\exit or inside your home? NONE * Pharmacy [facility] * Preadmission Environment [facility] * Facility Name [facility] * Equipment Other * Other Equipment ALL MEDICAL EQUIPMENT PROVIDED BY [facility] AND [facility]. * Community resources currently utilized [facility] * Please name any agencies selected above. [facility] Last DP export: 01/23/20 4:25 pm Patient Name: ALBERT MADRID Page 81844 at 1732 All edits/amendments must be made on the electronic document DICTATION DATE: 01/23/201730 COUNTER PROFESSIONAL: ISHMAEL 01/23/201730 RPT#: [id number] DC DATE: STATUS: ADM IN [facility] [address] [place] [address] END OF REPORT
--- NOTE | 2020-01-23 19:00 | NUR ---
BEDSIDE REPORT RECEIVED AND CARE OF PT ASSUMED. PT SITTING UP IN CHAIR AT THIS TIME. IV TO LEFT AC PATENT WITH NS INFUSING AT 100 ML/HR. WILL MONITOR FOR NEEDS. BED ALARM IN USE FOR SAFETY.
--- NOTE | 2020-01-23 19:13 | NUR ---
SITTING UP IN CHAIR, ALERT. NO C/O PAIN. NO S/S OF ACUTE DISTRESS NOTED. CALL LIGHT IN REACH. SEFERINO ALARM ON. DENIES ANY NEEDS AT THIS TIME. WILL CONTINUE TO MONITOR.
[2020-01-23 20:00] VITALS: BP 134/83
--- NOTE | 2020-01-23 20:02 | MORECARE ---
CASE MANAGEMENT DISCHARGE SUMMARY PATIENT: ALBERT MADRID JR UNIT: [id number] ADM DATE: 01/21/20 AGE: 69 : 50 SEX: M ROOM/BED: D.2235 AUTHOR: ARTURO,DOC PHYSICIAN: REFERRING PHYSICIAN: KEMI WOODSON MD DATE OF SERVICE: 01/23/20 Discharge Plan Patient Name: ALBERT MADRID Facility: [facility]:[place] : 1950 Planned Disposition: Nursing Facility [facility] Cert Anticipated Discharge Date: Discharge Date: Expected LOS: Initial Reviewer: [id number] Initial Review Date: 01/23/2020 Generated: 01/23/20 9:01 pm Comments DCP- Discharge Planning Updated by [id number]: Vincent Stephen on 01/23/20 4:[address] Patient Name: ALBERT MADRID Admission Status: ER Accout number: [id number] Admission Date: 01-21-2020 : 1950 Admission Diagnosis: Attending: KEMI WOODSON Current LOS: 2 Anticipated DC Date: Planned Disposition: Nursing Facility [facility] Cert Primary Insurance: HUMANA CHOICE PPO MCR ADVANT PLANNED EXTERNAL PROVIDER: [facility], CUSTODIAL CARE MEDICAID PENDING BED WITH [facility] Discharge Planning Comments: MARY JANE RECEIVED CALL FROM VANESSA CROWLEY, CASER SHOE PARTS OF [facility]. [facility] SENT PT TO HOSPITAL AND WAS SEEKING UPDATE ON CARE. PT WAS ADMITTED TO [facility] FROM HOME WITH [facility] RESPITE BED AND HAS BEEN IN A ELECTRIC SHIPYARD OPERATOR CARE MEDICAID PENDING BED WITH [facility]. [facility] [place] PLANS TO ACCEPT BACK TO ELECTRIC SHIPYARD OPERATOR CARE AT HOSPTIAL DISCHARGE. CM SPOKE TO RN MARY JANE QUINTERO WHO HAS SPOKEN TO PT AND VERIFIED DISCHARGE PLAN. CM FAXED UPDATES TO [facility] AT [phone] AND [facility] AT [phone]. FOR DISCHARGE BACK TO ELECTRIC SHIPYARD OPERATOR CARE AT [facility], FAX DISCHARGE INFORMATION TO [facility] AT [phone]; NURSE REPORT TO BE CALLED TO [facility] AT [phone]. [facility] TO ARRANGE VAN TRANSPORTATION IF PT IS ABLE TO SIT SAFELY FOR DURATION OF TRANSPORT. NOTIFY [facility] AT [phone], FAX DISCHARGE INFORMATION TO [facility] AT [phone]. CM TO CONTINUE TO FOLLOW AND ASSIST NEEDED. Mortgage Banker: Vincent Stephen DCPIA - Discharge Planning Initial Assessment Updated by [id number]: Lisa Quintero on 01/23/20 7:57 pm * How many steps to enter\exit or inside your home? NONE * PCP [facility] * Pharmacy [facility] * Preadmission Environment Nursing Home [facility] * Facility Name [facility] * Equipment Other * Other Equipment ALL MEDICAL EQUIPMENT PROVIDED BY [facility]. * List name and contact numbers for known caregivers / representatives who currently or will assist patient after discharge: PAULO MADRID - [phone] - * Verbal permission to speak to the caregivers and representatives has been obtained from the patient. Yes * Community resources currently utilized Hospice Home * Please name any agencies selected above. [facility] Last DP export: 01/23/20 4:32 pm Patient Name: ALBERT MADRID Page 20777 at 2002 All edits/amendments must be made on the electronic document DICTATION DATE: 01/23/202000 ROTARY VENEER MACHINE OPERATOR: ISHMAEL 01/23/202000 RPT#: [id number] DC DATE: STATUS: ADM IN [facility] [address] [place] [address] END OF REPORT
--- NOTE | 2020-01-23 20:25 | NUR ---
HS MEDICATIONS GIVEN. WILL CONTINUE TO MONITOR FOR NEEDS.
[2020-01-24] VITALS: BP 167/74
[2020-01-24 04:00] VITALS: BP 147/75
[2020-01-24 05:53] LABS: BASOPHILS 0.3 % (0-2); EOSINOPHILS 6.7 % (0-7); HEMATOCRIT 37.9 % (42.0-54.0); HEMOGLOBIN 12.2 g/dL (13.5-17.5); IMMATURE GRANULOCYTES 0.1 % (0-5); LYMPHOCYTES 30.6 % (15-50); MCH 31.9 pg (26.0-34.0); MCHC 32.2 g/dL (31.0-37.0); MEAN PLATELET VOLUME 10.4 fL (7.4-10.4); MONOCYTES 12.9 % (2-11); NEUTROPHILS 49.4 % (40-80); PLATELET COUNT 263 10x3/uL (130-400); RBC 3.83 10x6/uL (4.20-6.10); RDW 13.6 % (11.5-14.5); WBC 10.8 10x3/uL (4.8-10.8)
[2020-01-24 05:55] LABS: ANION GAP 10.5 mmol/L (8-16); CARBON DIOXIDE 27.3 mmol/L (21.0-32.0); CREATININE - SERUM 1.6 mg/dL (0.6-1.3); POTASSIUM - SERUM 3.8 mmol/L (3.5-5.1)
[2020-01-24 07:37] VITALS: BP 141/68
--- NOTE | 2020-01-24 09:04 | NUR ---
HE IS AWAKE, EATING BREAKFAST, HE SAT UP ON THE SIDE OF THE BED. HE STATES "I AM STILL A LITTLE CONFUSED". ASKING ABOUT HAVING ANOTHER STROKE.
[2020-01-24] MEDS ORDERED: LISINOPRIL40 MG PO (09:05)
[2020-01-24] MEDS ORDERED: ACETAMINOPHEN325 MG PO (09:06)
[2020-01-24] MEDS ORDERED: ASPIRIN81 MG PO (09:06)
[2020-01-24] MEDS ORDERED: Lantus Insulin SC (09:08)
--- NOTE | 2020-01-24 10:00 | NUR ---
SHE HAS BEEN ASLEEP THIS MORNING. HER IS ON HIS WAY TO GET HER, SHE HAS BEEN DISCHARGE.
--- NOTE | 2020-01-24 10:18 | MORECARE ---
CASE MANAGEMENT DISCHARGE SUMMARY PATIENT: ALBERT MADRID JR UNIT: [id number] ADM DATE: 01/21/20 AGE: 69 : 50 SEX: M ROOM/BED: D.2235 AUTHOR: ARTURO,DOC PHYSICIAN: REFERRING PHYSICIAN: KEMI WOODSON MD DATE OF SERVICE: 01/24/20 Discharge Plan Patient Name: ALBERT MADRID Facility: [facility]:[place] : 1950 Planned Disposition: Nursing Facility [facility] Cert Anticipated Discharge Date: Discharge Date: Expected LOS: Initial Reviewer: [email or web address] Initial Review Date: 01/23/2020 Generated: 01/24/20 11:18 am Comments DCP- Discharge Planning Updated by [id number]: Vincent Stephen on 01/23/20 4:[address] Patient Name: ALBERT MADRID Admission Status: ER Accout number: [id number] Admission Date: 01-21-2020 : 1950 Admission Diagnosis: Attending: KEMI WOODSON Current LOS: 2 Anticipated DC Date: Planned Disposition: Nursing Facility [facility] Cert Primary Insurance: HUMANA CHOICE PPO MCR ADVANT PLANNED EXTERNAL PROVIDER: [facility], SHELTER CARE MEDICAID PENDING BED WITH [facility] Discharge Planning Comments: CM RECEIVED CALL FROM VANESSA CROWLEY, PAPER FEEDER OF [facility]. [facility] SENT PT TO HOSPITAL AND WAS SEEKING UPDATE ON CARE. PT WAS ADMITTED TO [facility] FROM HOME WITH [facility] RESPITE BED AND HAS BEEN IN A PRINCIPAL WEB DEVELOPER CARE MEDICAID PENDING BED WITH [facility]. [facility] PLANS TO ACCEPT BACK TO [facility]LTER C[facility] AT HOSPTIAL DISCHARGE. CM SPOKE TO RN MARY JANE QUINTERO WHO HAS SPOKEN TO PT AND VERIFIED DISCHARGE PLAN. CM FAXED UPDATES TO [facility] AT [phone] AND [facility] AT [phone]. FOR DISCHARGE BACK TO SHELTER CARE AT [facility], FAX DISCHARGE INFORMATION TO [facility] AT [phone]; NURSE REPORT TO BE CALLED TO [facility] AT [phone]. [facility] TO ARRANGE VAN TRANSPORTATION IF PT IS ABLE TO SIT SAFELY FOR DURATION OF TRANSPORT. NOTIFY [facility] AT [phone], FAX DISCHARGE INFORMATION TO [facility] AT [phone]. CM TO CONTINUE TO FOLLOW AND ASSIST NEEDED. Quality Assurance Tester: Vincent Stephen DCPIA - Discharge Planning Initial Assessment Updated by [id number]: Lisa Quintero on 01/23/20 7:57 pm * How many steps to enter\exit or inside your home? NONE * PCP [facility] * Pharmacy [facility] * Preadmission Environment Group Home Retirement * Facility Name [facility] * Equipment Other * Other Equipment ALL MEDICAL EQUIPMENT PROVIDED BY [facility] AND [facility]. * List name and contact numbers for known caregivers / representatives who currently or will assist patient after discharge: PAULO MADRID - [phone] - * Verbal permission to speak to the caregivers and representatives has been obtained from the patient. Yes * Community resources currently utilized Hospice Home * Please name any agencies selected above. [facility] AT [facility] External Providers External Provider: [facility] Next Contact Date: 01/23/2020 Service Request Date: Service Type: Resolution: Reviewer: Comments: Last DP export: 01/23/20 7:02 pm Patient Name: ALBERT MADRID Page [id number] at 1018 All edits/amendments must be made on the electronic document DICTATION DATE: 01/24/20 1018 SOLDER MAKING LABORER: ISHMAEL 01/24/20 1018 RPT#: [id number] DC DATE: STATUS: ADM IN [facility] [address] [place] [address] END OF REPORT
--- NOTE | 2020-01-24 11:57 | MORECARE ---
CASE MANAGEMENT DISCHARGE SUMMARY PATIENT: ALBERT MADRID JR UNIT: [id number] ADM DATE: 01/21/20 AGE: 69 : 50 SEX: M ROOM/BED: D.2235 AUTHOR: ARTURO,DOC PHYSICIAN: REFERRING PHYSICIAN: KEMI UGARTE MD DATE OF SERVICE: 01/24/20 Discharge Plan Patient Name: ALBERT MADRID Facility: [facility]:[place] : 1950 Planned Disposition: Nursing Facility [facility] Cert Anticipated Discharge Date: Discharge Date: Expected LOS: Initial Reviewer: [id number] Initial Review Date: 01/23/2020 Generated: 01/24/20 12:56 pm Comments DCP- Discharge Planning Updated by [id number]: Katerine Jaime on 01/24/20 10:[address] Patient will be discharging to [facility] to a skilled bed to PT,OT,ST as ordered by Dr Ugarte. 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 I asked him if there was someone to call and he said no. CM will continue to follow and assist as needed DCP- Discharge Planning Updated by [id number]: Vincent Stephen on 01/23/20 4:[address] Patient Name: ALBERT MADRID Admission Status: ER Accout number: [id number] Admission Date: 01-21-2020 : 1950 Admission Diagnosis: Attending: KEMI UGARTE Current LOS: 2 Anticipated DC Date: Planned Disposition: Nursing Facility [facility] Cert Primary Insurance: HUMANA CHOICE PPO MCR ADVANT PLANNED EXTERNAL PROVIDER: [facility], SERVICE STATION HELPER CARE MEDICAID PENDING BED WITH [facility] Discharge Planning Comments: CM RECEIVED CALL FROM VANESSA CROWLEY, AUTOMATION MANAGER [facility]. [facility] SENT PT TO HOSPITAL AND WAS SEEKING UPDATE ON CARE. PT WAS ADMITTED TO [facility] FROM HOME WITH [facility] RESPITE B[facility] AND HAS BEEN IN A ALF CARE MEDICAID PENDING BED WITH [facility]. [facility] PLANS TO ACCEPT BACK TO ALF CARE AT HOSPTIAL DISCHARGE. CM SPOKE TO RN MARY JANE QUINTERO WHO HAS SPOKEN TO PT AND VERIFIED DISCHARGE PLAN. CM FAXED UPDATES TO [facility] AT [phone] AND [facility] AT [phone]. FOR DISCHARGE BACK TO SERVICE STATION HELPER CARE AT [facility], FAX DISCHARGE INFORMATION TO [facility] AT [phone]; NURSE REPORT TO BE CALLED TO [facility] AT [phone]. [place] TO ARRANGE VAN TRANSPORTATION IF PT IS ABLE TO SIT SAFELY FOR DURATION OF TRANSPORT. NOTIFY [facility] AT [phone], FAX DISCHARGE INFORMATION TO [place] AT [phone]. CM TO CONTINUE TO FOLLOW AND ASSIST NEEDED. Commercial Review Appraiser: Vincent Stephen DCPIA - Discharge Planning Initial Assessment Updated by [email or web address]: Lisa Quintero on 01/23/20 7:57 pm * How many steps to enter\exit or inside your home? NONE * PCP [facility] * Pharmacy [facility] * Preadmission Environment Liquid Waste Treatment Plant Operator Jail * Facility Name [facility] * Equipment Other * Other Equipment ALL MEDICAL EQUIPMENT PROVIDED BY [facility]. * List name and contact numbers for known caregivers / representatives who currently or will assist patient after discharge: PAULO MADRID - [phone] - * Verbal permission to speak to the caregivers and representatives has been obtained from the patient. Yes * Community resources currently utilized Hospice Home * Please name any agencies selected above. [facility] AT [facility] Coverage Notice Reviewer: [id number] - Katerine Jaime Notice Issued Date-Time: 01/24/2020 11:40 Notice Type: IM Discharge Notice Notice Delivered To: Patient Relationship to Patient: Can Piler Name: Delivery Method: HAND - Hand Delivered Melissa Days: Prior Verbal Notification: Recipient Understood Notice: Yes Recipient Signature: Yes Med Rec Note Co-signed by Attending: Coverage Notice Comment: Last DP export: 01/24/20 9:18 am Patient Name: ALBERT MADRID Page 70375 at 1157 All edits/amendments must be made on the electronic document DICTATION DATE: 01/24/20 115 ANTISQUEAK WORKER: ISHMAEL 01/24/20 1156 RPT#: [id number] DC DATE: STATUS: ADM IN [facility] [address] [place] [address] END OF REPORT
[2020-01-24 12:17] VITALS: BP 117/59
--- NOTE | 2020-01-24 12:33 | NUR ---
GAVE REPORT TO ERVIN DUFFY AT THE [facility].
--- NOTE | 2020-01-24 12:35 | NUR ---
CALL [facility], THEY SAID THEY WILL BE HERE IN 50 MINUTES.
--- NOTE | 2020-01-25 18:17 | MORECARE ---
CASE MANAGEMENT DISCHARGE SUMMARY PATIENT: ALBERT MADRID JR UNIT: [id number] ADM DATE: 01/21/20 AGE: 69 : 50 SEX: M ROOM/BED: D.2235 AUTHOR: ARTURO,DOC PHYSICIAN: REFERRING PHYSICIAN: KEMI UGARTE MD DATE OF SERVICE: 01/25/20 Discharge Plan Patient Name: ALBERT MADRID Facility: [facility]:[place] : 1950 Planned Disposition: Nursing Facility [facility] Cert Anticipated Discharge Date: Discharge Date: 01/24/2020 Expected LOS: 0 Initial Reviewer: [id number] Initial Review Date: 01/23/2020 Generated: 01/25/20 7:17 pm Comments DCP- Discharge Planning Updated by [email or web address]: Katerine Jaime on 01/24/20 10:[address] Patient will be discharging to [facility] to a skilled bed to PT,OT,ST as ordered by Dr Ugarte. They will be transporting via [facility], per [place] ( I spoke with Geremias) IMM served to patient, He was unable to sign due to a CVA. I asked him if there was someone to call and he said no. CM will continue to follow and assist as needed DCP- Discharge Planning Updated by [id number]: Vincent Stephen on 01/23/20 4:[address] Patient Name: ALBERT MADRID Admission Status: ER Accout number: [id number] Admission Date: 01-21-2020 : 1950 Admission Diagnosis: Attending: KEMI UGARTE Current LOS: 2 Anticipated DC Date: Planned Disposition: Nursing Facility [facility] Cert Primary Insurance: HUMANA CHOICE PPO MCR ADVANT PLANNED EXTERNAL PROVIDER: [facility], HALFWAY CARE MEDICAID PENDING BED WITH [facility] Discharge Planning Comments: CM RECEIVED CALL FROM VANESSA CROWLEY, OUT OF TOWN COLLECTION CLERK OF [facility]. [facility] SENT PT TO HOSPITAL AND WAS SEEKING UPDATE ON CARE. PT WAS ADMITTED TO [facility] FROM HOME [facility] RESPITE BED AND HAS BEEN IN A STAFF SERVICES MANAGER CARE MEDICAID PENDING BED WITH [facility]. [facility] PLANS TO ACCEPT BACK TO STAFF SERVICES MANAGER CARE AT HOSPTIAL DISCHARGE. CM SPOKE TO RN MARY JANE QUINTERO WHO HAS SPOKEN TO PT AND VERIFIED DISCHARGE PLAN. CM FA[facility]ED UPDATES TO [facility] AT [phone] AND [facility] AT [phone]. FOR DISCHARGE BACK TO STAFF SERVICES MANAGER CARE AT [facility], FAX DISCHARGE INFORMATION TO [place] AT [phone]; NURSE REPORT TO BE CALLED TO [facility] AT [phone]. [facility] TO ARRANGE VAN TRANSPORTATION IF PT IS ABLE TO SIT SAFELY FOR DURATION OF TRANSPORT. NOTIFY [facility] AT [phone], FAX DISCHARGE INFORMATION TO [facility] AT [phone]. CM TO CONTINUE TO FOLLOW AND ASSIST NEEDED. School Nurse: Vincent Stephen DCPIA - Discharge Planning Initial Assessment Updated by [id number]: Lisa Quintero on 01/23/20 7:57 pm * How many steps to enter\exit or inside your home? NONE * PCP [facility] * Pharmacy [facility] * Preadmission Environment Boy'S Adviser Intermediate * Facility Name [facility] * Equipment Other * Other Equipment ALL MEDICAL EQUIPMENT PROVIDED BY [facility]. * List name and contact numbers for known caregivers / representatives who currently or will assist patient after discharge: PAULO MADRID - [phone] - * Verbal permission to speak to the caregivers and representatives has been obtained from the patient. Yes * Community resources currently utilized Hospice Home * Please name any agencies selected above. [facility] AT [facility] Coverage Notice Reviewer: [id number] - Katerine Jaime Notice Issued Date-Time: 01/24/2020 11:40 Notice Type: IM Discharge Notice Notice Delivered To: Patient Relationship to Patient: Front Desk Receptionist Name: Delivery Method: HAND - Hand Delivered Melissa Days: Prior Verbal Notification: Recipient Understood Notice: Yes Recipient Signature: Yes Med Rec Note Co-signed by Attending: Coverage Notice Comment: Last DP export: 01/24/20 10:57 am Patient Name: ALBERT MADRID Page 66025 at 1817 All edits/amendments must be made on the electronic document DICTATION DATE: 01/25/201816 MANAGER FRONT OFFICE: ISHMAEL 01/25/20 1817 RPT#: [id number] DC DATE:01/24/20 STATUS: DIS IN [facility] [address] [place] [address] END OF REPORT
== END 2020-01-24 14:40 | disposition home or self-care (01) | DRG 947 ==
LOC: D.ER 18:12 → EDSEX 18:12 → D.MS 20:40
PROVIDERS: Family Medicine; ADMIT Family Medicine; ATTEND Family Medicine
DX: R41.82 Altered mental status, unspecified (principal); I21.4 Non-ST elevation (NSTEMI) myocardial infarction; G93.41 Metabolic encephalopathy; N17.9 Acute kidney failure, unspecified; I69.359 Hemiplegia and hemiparesis following cerebral infarction affecting unspecified side; G45.9 Transient cerebral ischemic attack, unspecified; I25.10 Atherosclerotic heart disease of native coronary artery without angina pectoris; I10 Essential (primary) hypertension; E11.9 Type 2 diabetes mellitus without complications; E78.2 Mixed hyperlipidemia; W19.XXXA Unspecified fall, initial encounter; S00.93XA Contusion of unspecified part of head, initial encounter; I69.319 Unspecified symptoms and signs involving cognitive functions following cerebral infarction; F32.9 Major depressive disorder, single episode, unspecified; N40.0 Benign prostatic hyperplasia without lower urinary tract symptoms; K59.01 Slow transit constipation; K21.9 Gastro-esophageal reflux disease without esophagitis; F01.50 Vascular dementia, unspecified severity, without behavioral disturbance, psychotic disturbance, mood disturbance, and anxiety